=== PATIENT | female | born 1945 | race African-American/Black ===

== ENCOUNTER 2018-11-25 11:00 | Outpatient (RCR) ==
[2016-08-24 21:34] VITALS: BMI 34.1
--- NOTE | 2018-11-05 08:38 | RS.OPPTEV2 ---
Date of Note: 11/03/18 Visit #: 1 Number of visits approved by Insurance: n/a Date of Evaluation: 11/03/18 Payer Source: MEDICARE Surgery Performed?: No Treatment Diagnosis: Cervical pain History of Condition/Mechanism of Injury:: pt has a long history of cervical pain. pt with chronic daily headaches. No definite injury noted. Prior Level of Function.....Patient was independent with: ADL's, Self Care, Caregiving, Ambulation/Mobility, Community Integration/Access Functional Limitations: Sleep, ADL's, Pushing, Pulling, Lifting, Carrying Current Subjective/complaints:: pt reports she has been dealing with headaches and cervical pain for quite some time. Reports she has been unable to sleep longer than 2-3 hours due to pain Treatment Side (optional): N/A Medical History Medical History: Unremarkable, Hypertension, Diabetes Medical History Comments:: hypertension. Diabetes mellitus type II Surgical History: Lumbar Spine, Other Surgical History Comments:: Gallbladder, back, hysterectomy, implanted stimulator Smoking Status: Unknown if ever smoked Hx Home Medications: aspirin, calcium carb, cetirizine, esomeprazole, fluoxetine , fluticasone, furosemide, gabapentin, metformin, methylprednisone, metoprolol, montelukast, nifedipine xl, potassium chloride, spironolactone, sucralfate, tizanidine Patient's Goals: decrease neck pain Pain Assessment - Pain Description Pain Location: cervical pain and headaches Pain Description: Aching Current Pain Intensity: 8 Functional Outcome Measure Neck Disability Index: 6 - G Codes & Severity Modifier G Codes & Modifier: n/a Source of G Code score: n/a Observation - Observation Posture: Forward Head, Rounded Shoulders, Increased Thoracic Kyphosis Handedness: Right Gait - Gait Pattern General Gait Pattern Observation: No Deviations/Normal General Range of Motion: BUE and BLE WFL's Muscle Strength: BUE grossly 4+/5. BLE 5/5 - ROM Cervical Spine Range of Motion Limitations: Soft Tissue Tightness, Muscle Weakness, Pain Comments: cervical ROM limited in L rotation and L side bending with pain with these motions. - Strength Cervical Extension: 4- Good- Cervical Flexion: 4- Good- Cervical Lateral Flexion: 3- Fair- Cervical Rotation: 3- Fair- - Special Tests Foraminal Distraction: Positive (pt with slight increase in pain with distraction) Foraminal Compression: Negative Left, Negative Right Palpation Palpation Findings: Tenderness, Trigger Point, Muscle Guarding Comments:: pt presents with tenderness to palpation as well as muscle guarding and muscle tightness and trigger point to L upper trap Sensation - Sensation Right Upper Extremity: Intact/Normal Left Upper Extremity: Intact/Normal Right Lower Extremity: Intact/Normal Left Lower Extremity: Intact/Normal Balance - Sitting Balance Static Sitting Balance: Normal Dynamic Sitting Balance: Normal - Standing Balance Static Standing Balance: Normal Dynamic Standing Balance: Normal - Heat/Cryotherapy Treatment: Cryotherapy Comments:: cervical spine Interventions - Exercise/Activities/Manual Therapy Exercises/Activities: pt performed cervical retraction, upper trap stretch, corner stretch, scapular retraction. Manual Therapy: n/a HOME EXERCISE PROGRAM: pt given written HEP including cervical retraction, upper trap stretch, corner stretch, scapular retraction - Charges Timed Code Treatment Minutes: 48 Total Treatment Time: 59 Procedures billed for this date of service:: eval med ex and cold pack EVALUATION COMPLEXITY LEVEL EVALUATION COMPLEXITY LEVEL: HISTORY: Medium (OA, cervical pain, age), EXAM OF BODY SYSTEMS: Medium, CLINICAL PRESENTATION: Medium, CLINICAL DECISION MAKING: Medium Assessment Assessment: pt presents with decreased cervical ROM, pain as well as muscle tightness and trigger points noted in upper trap. pt also with chronic headaches which limit her ability to perform some of her normal activities. Feel pt would benefit from skilled PT for therex for stretching, strengthening, postural education. Patient Education: Home Exercise Program, Education of Plan of Care Rehab Potential: Good Short Term Goals Goal #1: pt independent with initial HEP Goal to be met by: 11/19/18 Goal #2: Decreased tighthness in L upper trap Goal to be met by: 11/19/18 Goal #3: pt rate pain <6/10 with activity Goal to be met by: 11/19/18 Fish Hatchery Specialist Goals Goal #1: Cervical ROM WFL's Goal to be met by: 12/03/18 Goal #2: pt report able to sleep >4 hours uninterrupted by pain Goal to be met by: 12/03/18 Goal #3: pt report able to perform normal daily activities with less pain Goal #4: . Plan - Treatment to be Provided Procedures: Therapeutic Exercises, Manual Therapy, Massage, Patient Education Modalities: Ultrasound/Phonophoresis, Cryotherapy, Hot Packs, Mechanical Traction Other:: No estim unless pt is able to turn off implanted stimulator - Treatment Plan Frequency: 2-3x a week Duration: 4 weeks Dates of Fish Hatchery Specialist Goals: 12/03/18 Expiration date of current Insurance Approval:: n/a - Treatment Code (1) Cervical pain Code(s): M54.2 - CERVICALGIA (2) Muscle tightness Code(s): M62.89 - OTHER SPECIFIED DISORDERS OF MUSCLE (3) Chronic headaches Code(s): R51 - HEADACHE Qualifiers: Headache type: unspecified Intractability: not intractable Qualified Code (s): R51 - Headache
--- NOTE | 2018-11-05 10:23 | RS.OPPTDN ---
Subjective Date of Note: 11/05/18 Visit #: 2 Number of visits approved by Insurance: na Date of Evaluation: 11/03/18 Payer Source: MEDICARE Treatment Diagnosis: Cervical pain Current Subjective/complaints:: Patient reports most of her neck discomfort is with rotastion to the L. Pain Assessment - Pain Description Pain Location: cervical Pain Description: Tightness Current Pain Intensity: not rated - Treatment Modality: Ultrasound Parameters/Method Applied: 10 mins. @ 1.5 w/cm2,continuous mode to cervical/UT's Patient Position: Sitting - Heat/Cryotherapy Treatment: Hot Pack (20 mins. prior to US) - Traction Treatment Method: Mechanical, Intermittent, Cervical Patient Position: Supine Amount of Force Applied: 13# Hold Time: 30 secs. Rest Time: 5 secs. Duration of treatment: 10 mins. Traction Treatment Comment: Tolerates well. Interventions - Exercise/Activities/Manual Therapy Exercises/Activities: HEP review only today while on traction. Total minutes of Exercise: 0 Manual Therapy: n/a Total minutes of Manual Therapy: 0 HOME EXERCISE PROGRAM: pt given written HEP including cervical retraction, upper trap stretch, corner stretch, scapular retraction - Charges Timed Code Treatment Minutes: 20 Total Treatment Time: 40 Procedures billed for this date of service:: hp,US,traction Assessment: Patient tolerates the traction well,is attentive to HEP recommendations.We discussed to also focus on posture ,especially when fatigued.She is not tender to palpate the L upper trap. today ,but is tender in the L occiput area. Patient Education: Education of diagnosis, Body/Joint mechanics, Home Exercise Program, Home Safety, Activity Modification, Education of Plan of Care Patient demonstrates compliance with HEP?: Yes Short Term Goals Goal #1: pt independent with initial HEP Goal to be met by: 11/19/18 Progress towards Goal:: Progressing Goal #2: Decreased tighthness in L upper trap Goal to be met by: 11/19/18 Goal #3: pt rate pain <6/10 with activity Goal to be met by: 11/19/18 Bioinformatics Analyst Goals Goal #1: Cervical ROM WFL's Goal to be met by: 12/03/18 Goal #2: pt report able to sleep >4 hours uninterrupted by pain Goal to be met by: 12/03/18 Goal #3: pt report able to perform normal daily activities with less pain Goal #4: . Plan Dates of Bioinformatics Analyst Goals: 12/03/18 Expiration date of current Insurance Approval:: na PLAN: Cont. skilled PT to reduce cervical pain ,increase the motion.
--- NOTE | 2018-11-09 10:17 | RS.OPPTDN ---
Subjective Date of Note: 11/09/18 Visit #: 3 Number of visits approved by Insurance: na Date of Evaluation: 11/03/18 Payer Source: MEDICARE Treatment Diagnosis: Cervical pain Current Subjective/complaints:: Patient reports feeling better after the last session ,no negative effects of traction.She reports doing her stretches at home . Pain Assessment - Pain Description Pain Location: cervical Pain Description: Tightness, Dull, Aching Current Pain Intensity: not rated - Treatment Modality: Ultrasound Parameters/Method Applied: 10 mins. @ 1.5 w/cm2 to cervical/UT's. Patient Position: Sitting - Heat/Cryotherapy Treatment: Hot Pack (20 mins. prior to US) - Traction Treatment Method: Mechanical, Intermittent, Cervical Patient Position: Supine Amount of Force Applied: 14# Hold Time: 30 secs. Rest Time: 5 secs. Duration of treatment: 15 mins. Traction Treatment Comment: Tolerates well Interventions - Exercise/Activities/Manual Therapy Exercises/Activities: na Total minutes of Exercise: 0 Manual Therapy: n/a Total minutes of Manual Therapy: 0 HOME EXERCISE PROGRAM: pt given written HEP including cervical retraction, upper trap stretch, corner stretch, scapular retraction - Charges Timed Code Treatment Minutes: 10 Total Treatment Time: 45 Procedures billed for this date of service:: hp,US,traction Assessment: Patient less tender to palpate the L occipital area today.She is compliant to HEP.She is motivated to improve.The cervical rotation to the L continues to be more limited ,as compared to the R. Patient Education: Education of diagnosis, Body/Joint mechanics, Home Exercise Program, Home Safety, Activity Modification, Education of Plan of Care Patient demonstrates compliance with HEP?: Yes Short Term Goals Goal #1: pt independent with initial HEP Goal to be met by: 11/19/18 Progress towards Goal:: Progressing Goal #2: Decreased tighthness in L upper trap Goal to be met by: 11/19/18 Goal #3: pt rate pain <6/10 with activity Goal to be met by: 11/19/18 Certified Breastfeeding Educator Goals Goal #1: Cervical ROM WFL's Goal to be met by: 12/03/18 Goal #2: pt report able to sleep >4 hours uninterrupted by pain Goal to be met by: 12/03/18 Goal #3: pt report able to perform normal daily activities with less pain Goal #4: . Plan Dates of Certified Breastfeeding Educator Goals: 12/03/18 Expiration date of current Insurance Approval:: na PLAN: Cont. PT to reduce /eliminate cervical pain ,increase the motion.
--- NOTE | 2018-11-10 10:28 | RS.OPPTDN ---
Subjective Date of Note: 11/10/18 Visit #: 4 Number of visits approved by Insurance: na Date of Evaluation: 11/03/18 Payer Source: MEDICARE Treatment Diagnosis: Cervical pain Current Subjective/complaints:: Patient reports turning her head to the L is getting better.She demonstrates this ,and it is visibly better. Pain Assessment - Pain Description Pain Location: cervical/L occipital area Pain Description: Tightness Current Pain Intensity: not rated - Treatment Modality: Ultrasound Parameters/Method Applied: 10 mins. @ 1.5 w/cm2 , continuous modeto cervical/UT' s. Patient Position: Sitting - Heat/Cryotherapy Treatment: Hot Pack (20 mins. prior to US and traction) - Traction Treatment Method: Mechanical, Intermittent, Cervical Patient Position: Supine Amount of Force Applied: 15 # Hold Time: 30 secs. Rest Time: 5 secs. Duration of treatment: 15 mins. Traction Treatment Comment: Tolerates well. Interventions - Exercise/Activities/Manual Therapy Exercises/Activities: Patient gives return demo of cervical rotation ,chin tucks with retraction while on hot pack . Total minutes of Exercise: 0 Manual Therapy: n/a Total minutes of Manual Therapy: 0 HOME EXERCISE PROGRAM: pt given written HEP including cervical retraction, upper trap stretch, corner stretch, scapular retraction - Charges Timed Code Treatment Minutes: 10 Total Treatment Time: 45 Procedures billed for this date of service:: hp,US,traction Assessment: Patient has improved cervical rotation to the L today with less intense pain ,is compliant to HEP.She has increased awarenes of her posture .She is automatic bandsaw tender to palpate the L occiput area,but she reports this is lessening also. Patient Education: Education of diagnosis, Body/Joint mechanics, Home Exercise Program, Home Safety, Activity Modification, Education of Plan of Care Patient demonstrates compliance with HEP?: Yes Short Term Goals Goal #1: pt independent with initial HEP Goal to be met by: 11/19/18 Progress towards Goal:: Progressing Goal #2: Decreased tighthness in L upper trap Goal to be met by: 11/19/18 Progress towards Goal:: Progressing Goal #3: pt rate pain <6/10 with activity Goal to be met by: 11/19/18 Progress towards Goal:: Progressing Alf Goals Goal #1: Cervical ROM WFL's Goal to be met by: 12/03/18 Goal #2: pt report able to sleep >4 hours uninterrupted by pain Goal to be met by: 12/03/18 Goal #3: pt report able to perform normal daily activities with less pain Goal #4: . Plan Dates of Territory Development Manager Goals: 12/03/18 Expiration date of current Insurance Approval:: na PLAN: Cont. skilled PT to reduce /eliminate the cervical pain , and increaes the ROM in all directions.
--- NOTE | 2018-11-15 08:55 | RS.CXNS ---
Date of scheduled appointment: 11/15/18 Type: Cancel Reason for Cancel/NS: Partient has to take her to Dr. elliott.
--- NOTE | 2018-11-17 10:01 | RS.OPPTDN ---
Subjective Date of Note: 11/17/18 Visit #: 5 Number of visits approved by Insurance: na Date of Evaluation: 11/03/18 Payer Source: MEDICARE Treatment Diagnosis: Cervical pain Current Subjective/complaints:: Patient reports she continues to do her cervical stretches,feels the rotation to the L is better.She did have one episode of tingling in the L UE a few days ago ,but this has not re-ocured. Pain Assessment - Pain Description Pain Location: cervical / UT Pain Description: Tightness Current Pain Intensity: not rated - Treatment Modality: Ultrasound Parameters/Method Applied: 10 mins. @ 1.5 w/cm2,cont. mode to cervical /UT area. - Heat/Cryotherapy Treatment: Hot Pack (20 mins. prior to US and traction) - Traction Treatment Method: Mechanical, Intermittent, Cervical Patient Position: Supine Amount of Force Applied: 16# Hold Time: 30 secs. Rest Time: 5 secs. Duration of treatment: 20 mins. Traction Treatment Comment: Tolerates well. Interventions - Exercise/Activities/Manual Therapy Exercises/Activities: Independent with chin tucks,retraction,lateral flexion , UT stretches. Total minutes of Exercise: 0 Manual Therapy: n/a Total minutes of Manual Therapy: 0 HOME EXERCISE PROGRAM: pt given written HEP including cervical retraction, upper trap stretch, corner stretch, scapular retraction - Charges Timed Code Treatment Minutes: 20 Total Treatment Time: 50 Procedures billed for this date of service:: hp,US,traction Assessment: Patient has less tone and tightness present in the cervical /UT muscles.improved rotation to the L.The traction gives her relief ,is tolerating ADL's better.She has good understanding of HEP. Patient Education: Body/Joint mechanics, Home Exercise Program, Education of Plan of Care Patient demonstrates compliance with HEP?: Yes Short Term Goals Goal #1: pt independent with initial HEP Goal to be met by: 11/19/18 Progress towards Goal:: Met Goal #2: Decreased tighthness in L upper trap Goal to be met by: 11/19/18 Progress towards Goal:: Progressing Goal #3: pt rate pain <6/10 with activity Goal to be met by: 11/19/18 Progress towards Goal:: Met Group Home Goals Goal #1: Cervical ROM WFL's Goal to be met by: 12/03/18 Progress towards goal: Progressing Goal #2: pt report able to sleep >4 hours uninterrupted by pain Goal to be met by: 12/03/18 Progress towards goal: No Change Comments: still approx. 2-3 hours at a time Goal #3: pt report able to perform normal daily activities with less pain Progress towards goal: Progressing Goal #4: . Plan Dates of Group Home Goals: 12/03/18 Expiration date of current Insurance Approval:: na PLAN: Cont. PT to eliminate cervical tightness ,improve her quality of sleep .
--- NOTE | 2018-11-19 09:58 | RS.CXNS ---
Date of scheduled appointment: 11/19/18 Type: Cancel (Has Dr. mace Scheduled for next week.)
--- NOTE | 2018-11-22 12:46 | RS.OPPTDN ---
Subjective Date of Note: 11/22/18 Visit #: 6 Number of visits approved by Insurance: na Date of Evaluation: 11/03/18 Payer Source: MEDICARE Treatment Diagnosis: Cervical pain Current Subjective/complaints:: Patient reports falling over the weekend due to uneven sidewalk,but did not hurt her neck. Pain Assessment - Pain Description Pain Location: cervical (tightness) Pain Description: Tightness Pain Description: tightness and minimal ache present Current Pain Intensity: 0 - Treatment Modality: Ultrasound Parameters/Method Applied: 10 mins. @ 1.5 w/cm2 ,cont. mode to cervical /UT's. - Heat/Cryotherapy Treatment: Hot Pack (20 mins. prior to US and manual) Interventions - Exercise/Activities/Manual Therapy Exercises/Activities: Independent with chin tucks,retraction,lateral flexion , UT stretches. Total minutes of Exercise: 0 Manual Therapy: 20 mins. deep tissue mobs. to cervical /UT region. Total minutes of Manual Therapy: 20 HOME EXERCISE PROGRAM: pt given written HEP including cervical retraction, upper trap stretch, corner stretch, scapular retraction - Charges Timed Code Treatment Minutes: 30 Total Treatment Time: 50 Procedures billed for this date of service:: hp,US,manual Assessment: Patient progressing well,has less intensity,less frequency of cervical pain.Her cervical rotation to the L is improving ,with less tightness present on the contralateral side of her neck.She has improved postural awareness,good understanding of HEP. Patient Education: Education of diagnosis, Body/Joint mechanics, Home Exercise Program, Home Safety, Activity Modification, Education of Plan of Care Patient demonstrates compliance with HEP?: Yes Short Term Goals Goal #1: pt independent with initial HEP Goal to be met by: 11/19/18 Progress towards Goal:: Met Goal #2: Decreased tighthness in L upper trap Goal to be met by: 11/19/18 Progress towards Goal:: Progressing Goal #3: pt rate pain <6/10 with activity Goal to be met by: 11/19/18 Progress towards Goal:: Met [facility] Goals Goal #1: Cervical ROM WFL's Goal to be met by: 12/03/18 Progress towards goal: Met Goal #2: pt report able to sleep >4 hours uninterrupted by pain Goal to be met by: 12/03/18 Progress towards goal: No Change Goal #3: pt report able to perform normal daily activities with less pain Progress towards goal: Progressing Goal #4: . Plan Dates of Penitentiary Goals: 12/03/18 Expiration date of current Insurance Approval:: na PLAN: Cont. skilled PT to return patient to highest LOF,with no pain present.
--- NOTE | 2018-11-25 12:58 | RS.OPPTDN ---
Subjective Date of Note: 11/25/18 Visit #: 7 Number of visits approved by Insurance: na Date of Evaluation: 11/03/18 Payer Source: MEDICARE Treatment Diagnosis: Cervical pain Current Subjective/complaints:: Patient continues to progress,is able to turn her head to L and R equally now ,continues to do her stretches. - Treatment Modality: Ultrasound Parameters/Method Applied: 10 mins. @ 1.5 w/cm2,continuous mode to cervical/UT Patient Position: Sitting - Heat/Cryotherapy Treatment: Hot Pack (20) - Traction Treatment Method: Mechanical, Intermittent, Cervical Patient Position: Supine Amount of Force Applied: 18 # Hold Time: 30 secs. Rest Time: 5 secs. Duration of treatment: 20 mins. Traction Treatment Comment: Tolerates well. Interventions - Exercise/Activities/Manual Therapy Exercises/Activities: Independent with chin tucks,retraction,lateral flexion , UT stretches. Total minutes of Exercise: 0 Manual Therapy: na HOME EXERCISE PROGRAM: pt given written HEP including cervical retraction, upper trap stretch, corner stretch, scapular retraction - Charges Timed Code Treatment Minutes: 10 Total Treatment Time: 50 Procedures billed for this date of service:: hp,US,traction Assessment: Progressing well in all areas,reports no pain today at this time.She tolerates daily activities with significantly less discomfort. Patient Education: Education of diagnosis, Body/Joint mechanics, Home Exercise Program, Home Safety, Activity Modification, Education of Plan of Care Patient demonstrates compliance with HEP?: Yes Short Term Goals Goal #1: pt independent with initial HEP Goal to be met by: 11/19/18 Progress towards Goal:: Met Goal #2: Decreased tighthness in L upper trap Goal to be met by: 11/19/18 Progress towards Goal:: Partially Met (symmetrical rotation now ,but minimal tightness in the R UT) Goal #3: pt rate pain <6/10 with activity Goal to be met by: 11/19/18 Progress towards Goal:: Met Halfway Goals Goal #1: Cervical ROM WFL's Goal to be met by: 12/03/18 Progress towards goal: Met Goal #2: pt report able to sleep >4 hours uninterrupted by pain Goal to be met by: 12/03/18 Progress towards goal: No Change Goal #3: pt report able to perform normal daily activities with less pain Progress towards goal: Partially Met Goal #4: . Plan Dates of Technical Sales Consultant Goals: 12/03/18 Expiration date of current Insurance Approval:: na PLAN: Cont PT ,inititate D/C plan ,2-3 more sessions.
== END 2018-11-28 23:59 ==
PROVIDERS: ATTEND Clinical Nurse Specialist Adult Health
DX: M54.2 Cervicalgia (principal)

== ENCOUNTER 2018-11-30 11:14 | Outpatient (RCR) ==
[2016-08-24 21:34] VITALS: BMI 34.1
--- NOTE | 2018-11-30 13:00 | RS.OPPTDN ---
Subjective Date of Note: 11/30/18 Visit #: 8 Number of visits approved by Insurance: na Date of Evaluation: 11/03/18 Payer Source: MEDICARE Treatment Diagnosis: Cervical pain Current Subjective/complaints:: Reports feling much better,we discussed the D/C plan today ,she agrees ,is doing HEP without difficulty. Pain Assessment - Pain Description Pain Location: cervical Current Pain Intensity: 0 - Heat/Cryotherapy Treatment: Hot Pack (20 mins. prior to traction) - Traction Treatment Method: Mechanical, Intermittent, Cervical Amount of Force Applied: 19-20# Hold Time: 30 secs. Rest Time: 5 secs. Duration of treatment: 20 mins Traction Treatment Comment: Tolerates well. Interventions - Exercise/Activities/Manual Therapy Exercises/Activities: Independent with chin tucks,retraction,lateral flexion , UT stretches. Total minutes of Exercise: 0 Manual Therapy: na Total minutes of Manual Therapy: 0 HOME EXERCISE PROGRAM: pt given written HEP including cervical retraction, upper trap stretch, corner stretch, scapular retraction - Charges Timed Code Treatment Minutes: 0 Total Treatment Time: 40 Procedures billed for this date of service:: hp,traction Assessment: Patient has progressed well,met all STG's and LTG's. Patient Education: Home Exercise Program, Education of Plan of Care Patient demonstrates compliance with HEP?: Yes Short Term Goals Goal #1: pt independent with initial HEP Goal to be met by: 11/19/18 Progress towards Goal:: Met Goal #2: Decreased tighthness in L upper trap Goal to be met by: 11/19/18 Progress towards Goal:: Met Goal #3: pt rate pain <6/10 with activity Goal to be met by: 11/19/18 Progress towards Goal:: Met Skilled Nursing Goals Goal #1: Cervical ROM WFL's Goal to be met by: 12/03/18 Progress towards goal: Met Goal #2: pt report able to sleep >4 hours uninterrupted by pain Goal to be met by: 12/03/18 Progress towards goal: Met Goal #3: pt report able to perform normal daily activities with less pain Progress towards goal: Met Goal #4: . Plan Dates of Engine Service Repairer Goals: 12/03/18 Expiration date of current Insurance Approval:: na PLAN: D/C due to good progress.
--- NOTE | 2018-11-30 13:08 | RS.OPPTDC ---
Date of Discharge: 11/30/18 Date of Evaluation: 11/03/18 Number of Visits: 8 Treatment Diagnosis: Cervical pain Current Level of Function: pt is independent with HEP. 0/10 pain., no tightness noted in L upper trap. Cervical ROM WFL's. pt reports able to sleep through the night without pain. Neck disability index 0. Current Complaints/Gains: Pt is pleased with progress, no pain with cervical rotation, good understanding of HEP. Functional Outcome Measure Neck Disability Index: 0 - G Codes & Severity Modifier G Codes & Modifier: n/a Source of G Code score: n/a Observation - Observation Posture: Forward Head, Rounded Shoulders Handedness: Right Gait - Gait Pattern General Gait Pattern Observation: No Deviations/Normal Interventions - Exercise/Activities/Manual Therapy Exercises/Activities: n/a Manual Therapy: na HOME EXERCISE PROGRAM: pt given written HEP including cervical retraction, upper trap stretch, corner stretch, scapular retraction - Charges Timed Code Treatment Minutes: n/a Total Treatment Time: n/a Procedures billed for this date of service:: n/a Assessment Assessment: pt has met all goals. pt made significant progress with decreased pain, improved ROM as well as improvement in function. Patient Education: Home Exercise Program, Education of Plan of Care Rehab Potential: Good Short Term Goals Goal #1: pt independent with initial HEP Goal to be met by: 11/19/18 Progress towards Goal:: Met Goal #2: Decreased tighthness in L upper trap Goal to be met by: 11/19/18 Progress towards Goal:: Met (symmetrical rotation now ,but minimal tightness in the R UT) Goal #3: pt rate pain <6/10 with activity Goal to be met by: 11/19/18 Progress towards Goal:: Met Devops Goals Goal #1: Cervical ROM WFL's Goal to be met by: 12/03/18 Progress towards goal: Met Goal #2: pt report able to sleep >4 hours uninterrupted by pain Goal to be met by: 12/03/18 Progress towards goal: Met Goal #3: pt report able to perform normal daily activities with less pain Progress towards goal: Met Goal #4: . Plan Reason for Discharge:: All Goals Met
== END 2018-12-28 23:59 ==
PROVIDERS: ATTEND Clinical Nurse Specialist Adult Health
DX: M54.2 Cervicalgia (principal)